=== PATIENT | female | born 2000 | race Two or more races ===

== ENCOUNTER 2025-03-31 18:23 | Emergency (ER) | payer BC, SELFPAY ==
[2025-03-31 18:25] VITALS: PULSE 96; RESP 18; O2SAT 99; BMI 35.2
[2025-03-31 18:30] VITALS: BP 128/84; PULSE 88; RESP 18; TEMP 37.1; O2SAT 98
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
== END 2025-03-31 21:01 | disposition home or self-care (01) ==
PROVIDERS: Emergency Provider Emergency Medicine; PCP Family Medicine
DX: S20.219A Contusion of unspecified front wall of thorax, initial encounter (principal); V89.2XXA Person injured in unspecified motor-vehicle accident, traffic, initial encounter
CPT/HCPCS: 71046; 99282